=== PATIENT | female | born 1965 | race Caucasian/White ===

== ENCOUNTER 2017-05-23 11:10 | Emergency (ER) | payer BC ==
[~2017-05-23] VITALS: Ht 175.3 cm; Wt 102.1 kg
[~2017-05-23 11:10] MED LIST: LEXAPRO 20 MG T20 MG PO; MAXALT-MLT10 MG SL; TOPAMAX100 MG PO; ZOFRAN ODT8 MG PO
[2017-05-23] MEDS ORDERED: SYNTHROID0.025 MG PO (11:33)
[2017-05-23] MEDS ORDERED: GABAPENTIN 600600 MG PO (11:33)
[2017-05-23] MEDS ORDERED: PREMARIN 0.60.625 MG PO (11:34)
[2017-05-23] MEDS ORDERED: CELEBREX 100MG100 MG PO (11:35)
[2017-05-23] MEDS ORDERED: AMOXICILLIN 50500 MG PO (11:35)
[2017-05-23] MEDS ORDERED: VITAMIN D31000 IU PO (11:36)
[2017-05-23] MEDS ORDERED: FOLBIC RF1 TAB PO (11:36)
--- NOTE | 2017-05-23 11:42 | Urgent Treatment Center Report ---
History of Present Issue Date/Time Seen by Provider 05/23/17 1142 Visit Reason Pt arrived:Walked Presenting Problem:seen at [facility] yesterday dx with sinus infection. complains of throat pain and h/a. Location if Accident: Onset of symptoms date/time:/ or onset unknown for:MEDICAL HX UNKNOWN Have you (or family members/close friends) recently traveled outside the [place]? N If Yes, where/when: Have you had exposure to infectious disease within the past month? TB? Other? Specify: c/o continued sore throat. Woke up Tuesday with sore throat, PND, rhinorrhea, headache. Worse Tuesday morning. Was seen at clinic. Dx sinusitis. Rx amoxicillin and told to take coricidin. Despite 3 doses of each, sore throat was worse last night. Warm fluids help. Throat worse at night and in the morning. Intermittent cough "that I feel like is coming from a tickle in my throat". No known sick contacts. Source patient Exam Limitations no limitations ALLERGIES Coded Allergies: Sulfa (Sulfonamide Antibiotics) (Mild, I-HIVES 10/28/16) Home Medications Active Scripts Rizatriptan Benzoate (Maxalt Bevel Polisher) 10 MG SL Q8HP #6 Prov: 06/10/08 Ondansetron (Zofran 8MG Odt) 8 MG PO Q8HP #12 ODT Prov: 08/19/12 Reported Medications Escitalopram Oxalate (Lexapro 20MG) 20 MG PO DAILY Topiramate (Topamax) 100 MG PO QHS Levothyroxine Sodium (Synthroid 0.025MG) 0.025 MG PO DAILY Gabapentin (Gabapentin 600MG) 600 MG PO DAILY Conjugated Estrogens (Premarin 0.625MG) 0.625 MG PO DAILY Celecoxib (Celebrex 100MG) 100 MG PO DAILY Amoxicillin Trihydrate (Amoxicillin 500MG) 500 MG PO BID B12/LEVOMEFOLATE CALCIUM/B-6 (Folbic Rf Tablet) 1 TAB PO DAILY CHOLECALCIFEROL (VITAMIN D3) (Vitamin D) 1,000 IUNITS PO DAILY History Medical History General Angina: No [place]: No Hypertension? Yes Hyperlipidemia? No CHF? No COPD? No Asthma? No CVA? No Seizures? No Diabetes? No GB Disease: No MRSA? No TB? No Cancer? No Immunization HX DT/Tetanus UNKNOWN Flu NEVER Pneumonia NEVER Surgical Hx Previous Surgery?Y HYSTERECTOMY TUBAL RT SHOULDER X2 Family History Family HX Diabetes Yes CAD Yes Hypertension Yes Hyperlipidemia Yes Cancer Yes TB No Social History Smoking Hx Smoker: Never Smoker Tobacco: No Alcohol Alcohol: No Review of Systems All Other Systems Reviewed and Negative Constitutional denies chills, denies fever Eyes denies drainage ENT see HPI. denies: ear pain, ear discharge, throat swelling. Respiratory denies shortness of breath, denies wheezing Cardiovascular denies chest pain Gastrointestinal denies no symptoms reported Musculoskeletal denies other (aches) Skin denies rash Psychiatric/Neurological see HPI Physical Exam Vital Signs Vital Signs Date Time Temp Pulse Resp B/P Pulse O2 O2 Flow FiO2 Ox Delivery Rate 05/23 1130 97.9 69 18 148/107 98 General Appearance normal appearance, no apparent distress Eye Exam - bilateral eye normal exam Ear, Nose, Throat normal ENT inspection (x/ cobblestoning and clear pND) Neck non-tender, supple Respiratory Status Yes: non productive cough (clearing throat frequently). No: respiratory distress, productive cough. Lung Sounds anterior: lungs clear. posterior: lungs clear. bilateral: lungs clear. Cardiovascular regular rate/rhythm, no peripheral edema, no murmur Neurologic alert, oriented x 3 Mental status normal mood/affect Skin normal color, warm/dry Lymphatic no adenopathy Medical Decision Making LABS/Meds/Orders Pt receiving controlled substance in ED? No Results/Orders Laboratory Tests 05/23/17 1139: Influenza Type A Ag NOT DETECTED, Influenza Type B Ag NOT DETECTED 05/23/17 1130: Group A Strep Screen NOT DETECTED Orders Procedure Date/time Status [facility] FLU A,B 05/23 1139 Complete [facility] STREP SCREEN 05/23 1124 Complete Departure Departure Time of Disposition 1248 Disposition DC Home or Self Care(routine) Clinical Impression Primary Impression: Upper respiratory virus Secondary Impressions: Pharyngitis Qualifiers: Pharyngitis/tonsillitis etiology: unspecified etiology Qualified Code: J02.9 - Acute pharyngitis, unspecified Condition STABLE Referrals Mine Saucedo MD (Family) Follow up IMMEDIATELY for new or worsening symptoms OR no noticeable improvement over the next 72 hours. 911 for difficulty breathing or swallowing.* Patient Instructions DI for Viral Pharyngitis, DI for Viral Upper Respiratory Infection -- Adult Additional Instructions * No sign of bacterial infection but you are already on an antibioitc as well. Sounds viral and if so, antibiotic won't help and Virus can take 7-14 days to run their course. * You can continue coricidin * Monitor Temp. FU if fevers begin * Encourage fluids, water, gatorade, powerade, pedialyte if infant/toddler/child * warm salt water gargles * warm fluids * sore throat lozenges * sleep elevated * humidifier/vaporizer * * Your throat swab was sent for culture. Those results are typically sent to your primary care. Be sure to follow up in 2-3 days if no improvement so they can review those results and treat if necessary. If you don't have primary care, I recommend you get one but in the mean time, you will have to return to a walk in clinic. Discharge Counseling Counseled pt/family regarding diagnosis, test results, medications/RX, home care, follow up needs at [phone]
--- NOTE | 2017-05-23 11:42 | Urgent Treatment Center Report ---
History of Present Issue Date/Time Seen by Provider 05/23/17 1142 Visit Reason Pt arrived:Walked Presenting Problem:seen at [facility] yesterday dx with sinus infection. complains of throat pain and h/a. Location if Accident: Onset of symptoms date/time:/ or onset unknown for:MEDICAL HX UNKNOWN Have you (or family members/close friends) recently traveled outside the [place]? N If Yes, where/when: Have you had exposure to infectious disease within the past month? TB? Other? Specify: c/o continued sore throat. Woke up Tuesday with sore throat, PND, rhinorrhea, headache. Worse Tuesday morning. Was seen at clinic. Dx sinusitis. Rx amoxicillin and told to take coricidin. Despite 3 doses of each, sore throat was worse last night. Warm fluids help. Throat worse at night and in the morning. Intermittent cough "that I feel like is coming from a tickle in my throat". No known sick contacts. Source patient Exam Limitations no limitations ALLERGIES Coded Allergies: Sulfa (Sulfonamide Antibiotics) (Mild, I-HIVES 10/28/16) Home Medications Active Scripts Rizatriptan Benzoate (Maxalt Pesticide Control Inspector) 10 MG SL Q8HP #6 Prov: 06/10/08 Ondansetron (Zofran 8MG Odt) 8 MG PO Q8HP #12 ODT Prov: 08/19/12 Reported Medications Escitalopram Oxalate (Lexapro 20MG) 20 MG PO DAILY Topiramate (Topamax) 100 MG PO QHS Levothyroxine Sodium (Synthroid 0.025MG) 0.025 MG PO DAILY Gabapentin (Gabapentin 600MG) 600 MG PO DAILY Conjugated Estrogens (Premarin 0.625MG) 0.625 MG PO DAILY Celecoxib (Celebrex 100MG) 100 MG PO DAILY Amoxicillin Trihydrate (Amoxicillin 500MG) 500 MG PO BID B12/LEVOMEFOLATE CALCIUM/B-6 (Folbic Rf Tablet) 1 TAB PO DAILY CHOLECALCIFEROL (VITAMIN D3) (Vitamin D) 1,000 IUNITS PO DAILY History Medical History General Angina: No [place]: No Hypertension? Yes Hyperlipidemia? No CHF? No COPD? No Asthma? No CVA? No Seizures? No Diabetes? No GB Disease: No MRSA? No TB? No Cancer? No Immunization HX DT/Tetanus UNKNOWN Flu NEVER Pneumonia NEVER Surgical Hx Previous Surgery?Y HYSTERECTOMY TUBAL RT SHOULDER X2 Family History Family HX Diabetes Yes CAD Yes Hypertension Yes Hyperlipidemia Yes Cancer Yes TB No Social History Smoking Hx Smoker: Never Smoker Tobacco: No Alcohol Alcohol: No Review of Systems All Other Systems Reviewed and Negative Constitutional denies chills, denies fever Eyes denies drainage ENT see HPI. denies: ear pain, ear discharge, throat swelling. Respiratory denies shortness of breath, denies wheezing Cardiovascular denies chest pain Gastrointestinal denies no symptoms reported Musculoskeletal denies other (aches) Skin denies rash Psychiatric/Neurological see HPI Physical Exam Vital Signs Vital Signs Date Time Temp Pulse Resp B/P Pulse O2 O2 Flow FiO2 Ox Delivery Rate 05/23 1130 97.9 69 18 148/107 98 General Appearance normal appearance, no apparent distress Eye Exam - bilateral eye normal exam Ear, Nose, Throat normal ENT inspection (x/ cobblestoning and clear pND) Neck non-tender, supple Respiratory Status Yes: non productive cough (clearing throat frequently). No: respiratory distress, productive cough. Lung Sounds anterior: lungs clear. posterior: lungs clear. bilateral: lungs clear. Cardiovascular regular rate/rhythm, no peripheral edema, no murmur Neurologic alert, oriented x 3 Mental status normal mood/affect Skin normal color, warm/dry Lymphatic no adenopathy Medical Decision Making LABS/Meds/Orders Pt receiving controlled substance in ED? No Results/Orders Laboratory Tests 05/23/17 1139: Influenza Type A Ag NOT DETECTED, Influenza Type B Ag NOT DETECTED 05/23/17 1130: Group A Strep Screen NOT DETECTED Orders Procedure Date/time Status [facility] FLU A,B 05/23 1139 Complete [facility] STREP SCREEN 05/23 1124 Complete Departure Departure Time of Disposition 1248 Disposition [place] Home or Self Care(routine) Clinical Impression Primary Impression: Upper respiratory virus Secondary Impressions: Pharyngitis Qualifiers: Pharyngitis/tonsillitis etiology: unspecified etiology Qualified Code: J02.9 - Acute pharyngitis, unspecified Condition STABLE Referrals Mine Saucedo MD (Family) Follow up IMMEDIATELY for new or worsening symptoms OR no noticeable improvement over the next 72 hours. 911 for difficulty breathing or swallowing.* Patient Instructions DI for Viral Pharyngitis, DI for Viral Upper Respiratory Infection -- Adult Additional Instructions * No sign of bacterial infection but you are already on an antibioitc as well. Sounds viral and if so, antibiotic won't help and Virus can take 7-14 days to run their course. * You can continue coricidin * Monitor Temp. FU if fevers begin * Encourage fluids, water, gatorade, powerade, pedialyte if infant/toddler/child * warm salt water gargles * warm fluids * sore throat lozenges * sleep elevated * humidifier/vaporizer * * Your throat swab was sent for culture. Those results are typically sent to your primary care. Be sure to follow up in 2-3 days if no improvement so they can review those results and treat if necessary. If you don't have primary care, I recommend you get one but in the mean time, you will have to return to a walk in clinic. Discharge Counseling Counseled pt/family regarding diagnosis, test results, medications/RX, home care, follow up needs at [phone]
[2017-05-23 12:56] VITALS: BP 148/107
== END 2017-05-23 12:57 | disposition home or self-care (01) ==
LOC: UTC 11:10
DX: J02.8 Acute pharyngitis due to other specified organisms (principal); I10 Essential (primary) hypertension; Z79.899 Other long term (current) drug therapy

== ENCOUNTER → 2017-06-22 | Outpatient (CLI) | payer BC ==
[~2017-06-22] MED LIST changes: +AMOXICILLIN 50500 MG PO; +CELEBREX 100MG100 MG PO; +FOLBIC RF1 TAB PO; +GABAPENTIN 600600 MG PO; +PREMARIN 0.60.625 MG PO; +SYNTHROID0.025 MG PO; +VITAMIN D31000 IU PO
--- NOTE | 2017-06-22 14:07 | RADIOLOGY REPORT PS360 ---
LUMBAR SPINE 5 VIEWS COMPARISON: None HISTORY: Low back pain TECHNIQUE: AP lateral and oblique views and spot view lumbosacral junction FINDINGS: There is normal curvature and alignment. All lumbar vertebrae appear intact. There is mild disc space narrowing at L5-S1 level, remaining disc spaces appear normal. There is no pars defect, the SI joints are normal. IMPRESSION: Mild degenerative disc disease L5-S1 otherwise normal study
== END ==
LOC: RAD 12:59
DX: M54.5 Low back pain (principal)

== ENCOUNTER → 2017-06-29 | Outpatient (CLI) | payer BC ==
--- NOTE | 2017-06-29 15:28 | RADIOLOGY REPORT PS360 ---
ANKLE-LT-3 VIEWS HISTORY: LT ANKLE INJURY ORDERING PHYSICIAN: Shanna Vargas APRN PATIENT AGE: 52 years COMPARISON: None FINDINGS: No fracture or dislocation. No lytic or blastic change. There is normal mineralization.. The joint spaces are well-preserved. No significant degenerative/arthritic changes. No erosive changes evident. There is mild soft tissue swelling over the lateral malleolus IMPRESSION: Soft tissue swelling laterally otherwise negative
== END ==
LOC: RAD 12:10
DX: S99.912A Unspecified injury of left ankle, initial encounter (principal)